=== PATIENT | female | born 1965 | race Caucasian/White ===

== ENCOUNTER 2016-07-25 19:52 | Emergency (ER) | payer OTHER ==
[~2016-07-25] VITALS: Ht 160 cm; Wt 60.0 kg
[~2016-07-25 19:52] MED LIST: ESOM40CA PO; FLUO10CA7 PO; Folic Acid PO; INSU100V5 SQ-INSULIN; INSU100V8 SQ; THIA100T6 PO
[2016-07-25 20:16] VITALS: BP 132/92
[2016-07-25 20:31] LABS: HEMOGLOBIN 13.6 g/dL (11.7-16.4)
[2016-07-25 20:45] LABS: ASPARTATE AMINO TRANSFERASE 195 U/L (15-37); BLOOD UREA NITROGEN 10 mg/dL (7-18)
[2016-07-25 20:48] LABS: ACETAMINOPHEN < 2 mcg/mL (10-30)
[2016-07-25] MEDS ORDERED: ZIPRASIDONE 20 MG INJ IM ONE ×2 (21:28→21:30)
== END 2016-07-26 05:56 | disposition home or self-care (01) ==
LOC: ED 21:34
DX: F32.1 Major depressive disorder, single episode, moderate (principal); F10.10 Alcohol abuse, uncomplicated; K21.9 Gastro-esophageal reflux disease without esophagitis; E11.9 Type 2 diabetes mellitus without complications; F41.9 Anxiety disorder, unspecified
CPT/HCPCS: 36415; 80053; 80307; 80329; 85025; 93005; 96372; 99285; J3486; G0480

== ENCOUNTER 2016-09-04 07:51 | Emergency (ER) | payer OTHER ==
[~2016-09-04] VITALS: Ht 160 cm; Wt 56.6 kg
[2016-09-04] MEDS ORDERED: SODIUM CHLORIDE 0.9% 1,000ML IVBOLUS ONE (09:30)
[2016-09-04] MEDS ORDERED: LORazepam 2 MG/ML, 1ML IVPush ONE (09:30)
[2016-09-04] MEDS ORDERED: ONDANSETRON 2MG/ML, 2ML IVPush ONE (09:30)
[2016-09-04] MEDS ORDERED: SODIUM CHLORIDE FLUSH 10ML SYR IVF ONE (09:30)
[2016-09-04] MEDS ORDERED: OMEG1CAP12 PO (09:47)
[2016-09-04] MEDS ORDERED: MULT1CAP19 PO (09:48)
[2016-09-04] MEDS ORDERED: TRAZ100T15 PO (09:49)
[2016-09-04] MEDS ORDERED: LORazepam 2 MG/ML, 1ML ONE (10:04)
[2016-09-04] MEDS ORDERED: ONDANSETRON 2MG/ML, 2ML ONE (10:06)
[2016-09-04 10:25] LABS: ASPARTATE AMINO TRANSFERASE 383 U/L (15-37); BLOOD UREA NITROGEN 9 mg/dL (7-18)
[2016-09-04 10:30] LABS: IS PT STATUS REG ER OR PRE ER? YES
[2016-09-04 11:52] VITALS: BP 110/68
== END 2016-09-04 11:54 | disposition home or self-care (01) ==
LOC: ED 11:17
DX: R07.89 Other chest pain (principal); K70.30 Alcoholic cirrhosis of liver without ascites; K21.9 Gastro-esophageal reflux disease without esophagitis; K70.10 Alcoholic hepatitis without ascites; K29.20 Alcoholic gastritis without bleeding; F17.200 Nicotine dependence, unspecified, uncomplicated; E11.9 Type 2 diabetes mellitus without complications
CPT/HCPCS: 36415; 71010; 80053; 84484; 85025; 93005; 96361; 96374; 96375; 99285; J2060; J2405; J7030